=== PATIENT | male | born 1945 | race Caucasian/White ===

== ENCOUNTER 2020-03-28 17:55 | Outpatient (REF) | payer MEDICARE, BC, SELFPAY ==
[2020-03-28 21:41] LABS: ALT 31 U/L (16-63); AST 28 U/L (15-37); Albumin 3.8 g/dL (3.4-5.0); Alkaline Phosphatase 51 U/L (46-116); Anion Gap 9.1 mmol/L (3-11); BUN 30 mg/dL (7-18); Bilirubin, Total 0.4 mg/dL (0.2-1.0); CO2 23.9 mmol/L (21.0-32.0); Calcium 9.1 mg/dL (8.5-10.1); Calculated LDL 49 mg/dL (<100); Chloride 102 mmol/L (98-107); Cholesterol 120 mg/dL (<200); Estimated GFR 42.58 (mL/min/1.73m2); Glucose 182 mg/dL (74-106); HDL Cholesterol 42 mg/dL (40-60); Potassium 5.2 mmol/L (3.5-5.1); Sodium 135 mmol/L (136-145); Total Protein 6.9 g/dL (6.4-8.2); Triglyceride 146 mg/dL (<150)
[2020-03-29 15:55] LABS: Hemoglobin A1C 6.5 % (3.8-5.6)
== END 2020-03-28 18:15 ==
LOC: NCHCN 17:55
PROVIDERS: Visit Provider Family Medicine
DX: E11.65 Type 2 diabetes mellitus with hyperglycemia (principal); E78.5 Hyperlipidemia, unspecified; I10 Essential (primary) hypertension
CPT/HCPCS: 80053; 80061; 83036

== ENCOUNTER 2021-04-03 14:35 | Outpatient (REF) | payer MEDICARE, BC, SELFPAY ==
[2021-04-03 13:43] LABS: HCT 39.6 % (40.0-50.0); HGB 13.1 g/dL (13.5-17.5); MCH 31.4 pg (27.0-33.0); MCHC 33.1 % (32.0-36.0); MPV 11.8 fL (8.0-11.0); Platelet Count 250 10^3/uL (130-400); RBC 4.17 10^6/uL (4.36-5.78); RDW 13.5 % (11.8-14.1); RDW-SD 46.9 fL; WBC 8.26 10^3/uL (4.4-10.8)
[2021-04-03 14:08] LABS: ALT 30 U/L (16-63); AST 26 U/L (15-37); Albumin 3.6 g/dL (3.4-5.0); Alkaline Phosphatase 56 U/L (46-116); Anion Gap 12.1 mmol/L (3-11); BUN 31 mg/dL (7-18); Bilirubin, Total 0.4 mg/dL (0.2-1.0); CO2 23.9 mmol/L (21.0-32.0); CREATININE 1.9 mg/dL (0.70-1.30); Calcium 9.4 mg/dL (8.5-10.1); Calculated LDL 45 mg/dL (<100); Chloride 105 mmol/L (98-107); Cholesterol 119 mg/dL (<200); Estimated GFR 34.83 (mL/min/1.73m2); Glucose 135 mg/dL (74-106); HDL Cholesterol 42 mg/dL (40-60); Potassium 5.7 mmol/L (3.5-5.1); Sodium 141 mmol/L (136-145); Total Protein 6.9 g/dL (6.4-8.2); Triglyceride 164 mg/dL (<150)
== END 2021-04-03 14:36 | disposition home or self-care (01) ==
LOC: NCHCN 14:35
PROVIDERS: Visit Provider Family Medicine
DX: E78.5 Hyperlipidemia, unspecified (principal); I10 Essential (primary) hypertension; E11.65 Type 2 diabetes mellitus with hyperglycemia
CPT/HCPCS: 80053; 80061; 85027

== ENCOUNTER 2021-05-07 16:13 | Outpatient (REF) | payer MEDICARE, BC, SELFPAY ==
[2021-05-07 14:20] LABS: Anion Gap 12.3 mmol/L (3-11); BUN 38 mg/dL (7-18); CO2 22.7 mmol/L (21.0-32.0); CREATININE 1.9 mg/dL (0.70-1.30); Calcium 9.3 mg/dL (8.5-10.1); Chloride 107 mmol/L (98-107); Estimated GFR 34.83 (mL/min/1.73m2); Glucose 134 mg/dL (74-106); Potassium 5.7 mmol/L (3.5-5.1); Sodium 142 mmol/L (136-145); Uric Acid 3.7 mg/dL (3.5-7.2)
== END 2021-05-07 16:14 | disposition home or self-care (01) ==
LOC: NCHCN 16:13
PROVIDERS: Visit Provider Family Medicine
DX: E11.65 Type 2 diabetes mellitus with hyperglycemia (principal); N19 Unspecified kidney failure; I10 Essential (primary) hypertension; M10.9 Gout, unspecified
CPT/HCPCS: 80048; 84550

== ENCOUNTER 2021-06-28 16:37 | Outpatient (REF) | payer MEDICARE, BC, SELFPAY ==
[2021-06-28 21:52] LABS: Anion Gap 8.3 mmol/L (3-11); BUN 28 mg/dL (7-18); CO2 26.7 mmol/L (21.0-32.0); CREATININE 1.6 mg/dL (0.70-1.30); Calcium 9.2 mg/dL (8.5-10.1); Chloride 107 mmol/L (98-107); Estimated GFR 42.46 (mL/min/1.73m2); Glucose 113 mg/dL (74-106); Potassium 4.7 mmol/L (3.5-5.1); Sodium 142 mmol/L (136-145); Uric Acid 6.1 mg/dL (3.5-7.2)
== END 2021-06-28 16:38 | disposition home or self-care (01) ==
LOC: NCHCN 16:37
PROVIDERS: Visit Provider Family Medicine
DX: E11.65 Type 2 diabetes mellitus with hyperglycemia (principal); I10 Essential (primary) hypertension; N19 Unspecified kidney failure
CPT/HCPCS: 80048; 84550

== ENCOUNTER 2022-03-28 17:50 | Outpatient (REF) | payer MEDICARE, BC, SELFPAY ==
[2022-03-28 20:52] LABS: Anion Gap 13.2 mmol/L (3-11); BUN 25 mg/dL (7-18); CO2 23.8 mmol/L (21.0-32.0); CREATININE 1.7 mg/dL (0.70-1.30); Calcium 9.3 mg/dL (8.5-10.1); Chloride 107 mmol/L (98-107); Estimated GFR 39.49 (mL/min/1.73m2); Glucose 147 mg/dL (74-106); Potassium 4.9 mmol/L (3.5-5.1); Sodium 144 mmol/L (136-145)
== END 2022-03-28 17:51 | disposition home or self-care (01) ==
LOC: NCHCN 17:50
PROVIDERS: PCP Family Medicine; Visit Provider Family Medicine
DX: I10 Essential (primary) hypertension (principal)
CPT/HCPCS: 80048

== ENCOUNTER 2022-06-20 18:46 | Outpatient (REF) | payer MEDICARE, BC, SELFPAY | END 2022-06-20 18:47 | disposition home or self-care (01) | LOC: NCHCN 18:46 | PROVIDERS: PCP Family Medicine; Visit Provider Family Medicine | DX: L03.90 Cellulitis, unspecified (principal) | CPT/HCPCS: 87077; 87070; 87186; 87205 ==

== ENCOUNTER 2022-07-21 11:02 | Emergency (ER) | payer MEDICARE, BC, SELFPAY ==
[2022-07-21 11:27] VITALS: BP 122/94; PULSE 68; RESP 18; TEMP 36.7; O2SAT 99
--- NOTE | 2022-07-21 13:00 | DI.RAD_ITS ---
Exam(s) XR HEEL RT OS CALCIS EXAM: XR HEEL RT OS CALCIS CLINICAL HISTORY: trauma, posterior heel pain. TECHNIQUE: 2D digital imaging was performed. Two views. COMPARISON: No exams were available for comparison FINDINGS: BONES: No acute fracture is present. No bony destructive lesion is seen.Tiny plantar spur. JOINTS: No dislocation present. SOFT TISSUE: Arterial calcifications. Soft tissue thickening posterior to calcaneus. Chronic appear ing focal calcification adjacent to the tuberosity. IMPRESSION: Posterior soft tissue swelling. No acute fracture. DATA REPOSITORY: RADIATION DOSE DELIVERED:
--- NOTE | 2022-07-21 13:13 | ED.GENADUL_ITS ---
Discharge Plan Disposition Patient Disposition: HOME Condition: Good Discharge Details Clinical Impression: Contusion of heel, Finger laceration Primary Care Provider: Ernesto Weiss ED Provider: Cynthia Story Home Meds and New Rx's Prescriptions: Continued aspirin [Claus Low Dose Aspirin] 81 MG tablet,delayed release (DR/EC) 81 mg PO DAILY famotidine 20 MG tablet 20 mg PO DAILY PRN Label Comments: 04/21/14 pt has not taken for months Does not take daily. CG Rx Instructions: if needed for heartburn ascorbic acid (vitamin C) 500 MG tablet 500 mg PO DAILY carhomcalxo-qfsdsulqi-exz C-Mn 1 EACH tablet 1 ea PO DAILY cholecalciferol (vitamin D3) 1,000 UNIT tablet 2,000 unit PO DAILY cetirizine [Zyrtec] 10 MG capsule 10 mg PO DAILY Rx Instructions: for allergies, marquita summer bnspo-cdnha-1-xlg-fqp-kpxgai [krill oil] 1 EACH capsule 1 ea PO DAILY triamcinolone acetonide 15 GM ointment 1 applic Topical DAILY Qty: 80 Rx Instructions: to left palm lesion acebutolol 400 MG capsule 400 mg PO DAILY Qty: 90 Rx Instructions: to control BP under 140/80 albuterol sulfate [ProAir HFA] 8.5 GM HFA aerosol inhaler 2 puff Inhalation Q4H PRN Qty: 1 metformin 850 MG tablet 850 mg PO as directed Qty: 270 Rx Instructions: one in the morning and two in the evening, for blood sugar control, E11.65 (DME) blood sugar diagnostic [OneTouch Ultra Test] 1 EACH strip 1 ea Miscellaneous DAILY Qty: 50 3RF Rx Instructions: to test blood sugars 2x/week to keep AIC at or below 7.0 Dx: E11.9 irbesartan [Avapro] 300 MG tablet 300 mg PO DAILY Qty: 90 3RF Rx Instructions: for BP control under 140/85 fluticasone propion-salmeterol [Advair Diskus] 1 EACH blister with device 1 ea Inhalation BID Qty: 1 11RF Rx Instructions: maintenance for asthma allopurinol 300 MG tablet 300 mg PO DAILY Qty: 90 1RF Rx Instructions: for tophacous gout simvastatin 40 MG tablet 40 mg PO HS Qty: 90 3RF spironolacton-hydrochlorothiaz [Aldactazide] 1 EACH tablet 1 tab-cap PO DAILY Qty: 90 3RF Rx Instructions: to control BP <140/80 uezceiav-tfi-AZ-lycopen-lutein [Centrum Silver Men] 1 EACH tablet 1 ea PO DAILY cbd oil 15 mg DAILY canagliflozin [Invokana] 100 MG tablet 100 mg PO DAILY 30 Days Qty: 30 6RF indomethacin 25 MG capsule 25 mg PO QID Qty: 20 3RF Rx Instructions: WHEN NEEDED FOR ACUTE GOUT Discharge Instructions Instructions: Foot Contusion (ED) Additional Instructions: Please return immediately to the emergency department if you develop any new or worsening symptoms, if your condition does not improve as expected, or if you become otherwise concerned. It is extremely important that you call soon as possible to make an appointment to be seen in follow-up for this visit by your primary care doctor. Referrals: Ernesto Weiss MD [Primary Care Provider] - Discharge Data Discharge Date/Time-TO BE ENTERED AT DEPARTURE: 07/21/22 14:59 Medical Decision Making Concern for calcaneus contusion versus less likely fracture, other, also healing wound of the left index finger. Exam/history at this time is not consistent with cellulitis/osteomyelitis of the foot for finger, fracture of other foot bones, ankle fracture, finger fracture, finger tendon injury, DVT, neuro vascular pathology of the foot. Plan for x-rays of the calcaneus; tetanus booster, bacitracin, gauze dressing, finger splint to promote healing, laceration repair not indicated at this time. X-rays negative. Patient states that he is able to walk easily without assistance, declines crutches. Okay for discharge to home. I had a discussion with Patient regarding return to emergency department precautions, home care, and importance of outpatient follow-up. Pt verbalizes understanding of the plan and is amenable. Patient discharged to home with clear plan for outpatient follow-up. All questions were answered. Disposition decision was made weighing the risks and benefits of hospitalization versus outpatient treatment, the risk for further decompensation, and the patient's wishes. Medical Records Medical records reviewed: Yes I reviewed the patient's medical records. Imaging Data Radiologic Study: Attestation: I personally reviewed and interpreted this imaging study as follows: Radiologist's impression: EXAM:? XR HEEL RT OS CALCIS CLINICAL HISTORY: ? trauma, posterior heel pain.? TECHNIQUE:? 2D digital imaging was performed.? Two views. COMPARISON:? No exams were available for comparison FINDINGS: BONES: No acute fracture is present. No bony destructive lesion is seen.Tiny plantar spur. JOINTS: No dislocation present. SOFT TISSUE: Arterial calcifications.? Soft tissue thickening posterior to calcaneus.? Chronic appearing focal calcification adjacent to the tuberosity. IMPRESSION: Posterior soft tissue swelling.? No acute fracture. HPI General Mode of arrival: ambulatory . Date/Time Provider Initiated Documentation: 07/21/22 12:32 . Limitations to Documentation: no limitations . Information obtained by: patient, RN notes reviewed and old records reviewed . HPI Narrative: Rafy Alvarez is a 76-year-old man with history of zdw-oalived-coauyccva diabetes, hyperlipidemia, hypertension, gout, diabetic neuropathy, status post arterial procedure of right lower extremity 06/23 presenting to emergency department with right-sided heel pain. Patient reports that on 07/16 he bumped the back of his right heel against a chair. Patient reports that the back of his heel has been painful since that time, worse with walking. Patient reports that he thought it was just a bruise however pain has not been improving much. Patient reports that he has been walking without assistance without issue since time of injury. Patient also reports that last night at 9 PM he cut his left second digit with a knife. Patient reports that there was initially significant bleeding from the cut, however he wrapped it with pressure and there has been no bleeding today. Patient denies any pain other than to right heel. Denies fever, cough, shortness of breath, numbness, weakness, vomiting, rash. On review of systems he does note that he had some diarrhea a few days ago that is now resolved. Patient reports that he sees his vascular surgeon at [facility] in 1 week and has had no issue with the surgical wounds from his procedure 06/23. Reports last tetanus shot 2006. Related Data Home Medications Medication Instructions Recorded Confirmed ascorbic acid (vitamin C) 500 mg 500 mg PO DAILY 02/18/13 04/21/14 tablet aspirin 81 mg tablet,delayed 81 mg PO DAILY 02/18/13 04/21/14 release (Claus Low Dose Aspirin) cetirizine 10 mg capsule (Zyrtec) 10 mg PO DAILY 02/18/13 04/21/14 cholecalciferol (vitamin D3) 25 2,000 unit PO DAILY 02/18/13 04/21/14 mcg (1,000 unit) tablet famotidine 20 mg tablet 20 mg PO DAILY PRN 02/18/13 04/21/14 weiyeprtuot-aafbnlnej-lny C-Mn 750 1 ea PO DAILY 02/18/13 04/21/14 mg-600 mg-55 mg-5 mg tablet krill 1 ea PO DAILY 02/18/13 04/21/14 jlf-xd-6-adc-vkq-nsoyscbhpvspx 300 mg-90 mg-24 mg-50 mg capsule (krill oil) acebutolol 400 mg capsule 400 mg PO DAILY #90 tab-caps 04/06/17 triamcinolone acetonide 0.5 % 1 applic topical DAILY #80 grams 04/06/17 topical ointment albuterol sulfate 90 mcg/actuation 2 puff inhalation Q4H PRN ##1 05/25/17 aerosol inhaler (ProAir HFA) metformin 850 mg tablet 850 mg PO as directed #270 tabs 07/10/17 blood sugar diagnostic (OneTouch #50 strips 09/14/17 Ultra Test strips) fluticasone 250 mcg-salmeterol 50 1 ea inhalation BID ##1 09/14/17 mcg/dose blistr powdr for inhalation (Advair Diskus) irbesartan 300 mg tablet (Avapro) 300 mg PO DAILY #90 tab-caps 09/14/17 allopurinol 300 mg tablet 300 mg PO DAILY #90 tab-caps 10/09/17 simvastatin 40 mg tablet 40 mg PO HS #90 tabs 11/24/17 spironolactone 25 1 tab-cap PO DAILY #90 tab-caps 12/28/17 mg-hydrochlorothiazide 25 mg tablet (Aldactazide) Cbd Oil 15 mg DAILY 01/15/18 canagliflozin 100 mg tablet 100 mg PO DAILY 30 days #30 01/15/18 (Invokana) tab-caps fjylcxpe-tfx-luvjw acid 300 1 ea PO DAILY 01/15/18 mcg-lycopene 600 mcg-lutein 300 mcg tablet (Centrum Silver Men) indomethacin 25 mg capsule 25 mg PO QID #20 tab-caps 01/28/18 Previous Rx's Medication Instructions Recorded blood sugar diagnostic (OneTouch #50 strips 09/14/17 Ultra Test strips) fluticasone 250 mcg-salmeterol 50 1 ea inhalation BID ##1 09/14/17 mcg/dose blistr powdr for inhalation (Advair Diskus) irbesartan 300 mg tablet (Avapro) 300 mg PO DAILY #90 tab-caps 09/14/17 allopurinol 300 mg tablet 300 mg PO DAILY #90 tab-caps 10/09/17 simvastatin 40 mg tablet 40 mg PO HS #90 tabs 11/24/17 spironolactone 25 1 tab-cap PO DAILY #90 tab-caps 12/28/17 mg-hydrochlorothiazide 25 mg tablet (Aldactazide) canagliflozin 100 mg tablet 100 mg PO DAILY 30 days #30 01/15/18 (Invokana) tab-caps indomethacin 25 mg capsule 25 mg PO QID #20 tab-caps 01/28/18 Allergies Allergy/AdvReac Type Severity Reaction Status Date / Time atenolol Allergy Severe CRITICAL. Unverified 09/14/17 15:06 SAM Inhibitors AdvReac Severe COUGH Unverified 09/14/17 15:06 General Stated Complaint: Orthopedic KARIS: 4 Review of Systems Narrative: Constitutional: denies fevers Eyes: denies eye pain ENT: denies ear pain, dental pain, sore throat Cardiovascular: denies chest pain Respiratory: denies SOB, cough GI: denies abdominal pain, vomiting, diarrhea : denies flank pain MSK: denies back pain, neck pain, arthralgias, myalgias, reports heel pain Skin: denies rash Neuro: denies headaches, numbness, weakness PFSH All Active Problems Contusion of heel (Acute) Finger laceration (Acute) Surgical History Prostatectomy (~11/2002) Laporoscopic, [place], [place] Rotator Cuff Repair (~1997) Tara Awan Family History Mother , CVA at age 63. Diabetes Father , colon ca at age 63. No problems noted. Social History Smoking/Tobacco Use Status: Former Tobacco Use Smoking risk assessment performed?: Yes Alcohol Intake: current Alcohol Intake frequency: holidays/special occasions o nly Drug use: Never Substance use type: marijuana Do you feel safe in your relationship?: Yes Exam Narrative Exam Narrative: Constitutional: well and qkm-mcwkh-dvcykgnyb, pleasant, conversing normally HENT: head atraumatic/normocephalic/normal inspection, mucous membranes moist Eyes: conjunctiva normal, sclera normal, pupils 3mm b/l Neck: no stridor, normal ROM, trachea midline Resp: normal work of breathing, speaking in full sentences Cardio: normal rate, normal rhythm Skin: warm, dry, normal color, no rash Neuro: alert, not altered, grossly non-focal, normal tone Ext: right posterior heel tender to palpation, mild edema of the posterior heel, no crepitus, no deformity, no erythema or overlying skin changes, no plantar tenderness to palpation of the heel, no other tenderness of the foot or ankle, full range of motion right ankle and right toes, no posterior calf tenderness to palpation, no lower leg edema, DP pulses intact and symmetric. Left index finger with a 1 cm superficial laceration over the palmar surface of the first phalanx, non-gaping, no bleeding, no tenderness to palpation of the PIP or DIP, full painless range of motion of the PIP and DIP, FDS and FDP function intact, brisk cap refill, no edema of the digit. Psych: normal mood, normal affect, normal behavior Course Vital Signs Vital signs: Vital Signs Temperature 36.7 C 07/21/22 11:27 Pulse 68 07/21/22 11:27 Respiratory Rate 18 07/21/22 11:27 Blood Pressure 122/94 H 07/21/22 11:27 Pulse Oximetry 99 07/21/22 11:27 Temperature 36.7 C 07/21/22 11:27 Temperature Source Skin 07/21/22 11:27 Pulse 68 07/21/22 11:27 Respiratory Rate 18 07/21/22 11:27 Respiratory Effort 07/21/22 11:34 Blood Pressure 122/94 H 07/21/22 11:27 Blood Pressure Position Sitting 07/21/22 11:27 Pulse Oximetry 99 07/21/22 11:27 Oxygen Delivery Method Room Air 07/21/22 11:27 Oxygen Flow Rate 0 07/21/22 11:27 Pain Level 6 07/21/22 11:27 Comment 07/21/22 11:27
[2022-07-21] MEDS: Bacitracin 1 PACKET TP (14:09)
== END 2022-07-21 14:59 | disposition home or self-care (01) ==
PROVIDERS: Emergency Provider Student in an Organized Health Care Education/Training Program; PCP Family Medicine
DX: S61.211A Laceration without foreign body of left index finger without damage to nail, initial encounter (principal); S90.32XA Contusion of left foot, initial encounter; W22.8XXA Striking against or struck by other objects, initial encounter; W26.0XXA Contact with knife, initial encounter; Z87.891 Personal history of nicotine dependence; Z23 Encounter for immunization; I10 Essential (primary) hypertension; E11.40 Type 2 diabetes mellitus with diabetic neuropathy, unspecified; Z79.84 Long term (current) use of oral hypoglycemic drugs
CPT/HCPCS: 90471; 99283; 73650; 99282

== ENCOUNTER 2022-09-22 15:10 | Outpatient (REF) | payer MEDICARE, BC, SELFPAY ==
[2022-09-22 21:38] LABS: HCT 30.2 % (40.0-50.0); HGB 8.7 g/dL (13.5-17.5); MCHC 28.8 % (32.0-36.0); MCV 77 fL (80-95); MPV 11.1 fL (8.0-11.0); Platelet Count 417 10^3/uL (130-400); RBC 3.95 10^6/uL (4.36-5.78); RDW 16.1 % (11.8-14.1); RDW-SD 44.9 fL; WBC 9.51 10^3/uL (4.4-10.8)
[2022-09-22 22:27] LABS: Anion Gap 12.2 mmol/L (3-11); BUN 32 mg/dL (7-18); CO2 22.8 mmol/L (21.0-32.0); CREATININE 1.5 mg/dL (0.70-1.30); Calcium 9.2 mg/dL (8.5-10.1); Chloride 105 mmol/L (98-107); Estimated GFR 47.95 (mL/min/1.73m2); Glucose 106 mg/dL (74-106); Potassium 4.5 mmol/L (3.5-5.1); Sodium 140 mmol/L (136-145)
== END 2022-09-22 15:11 | disposition home or self-care (01) ==
LOC: NCHCN 15:10
PROVIDERS: PCP Family Medicine; Visit Provider Family Medicine
DX: I10 Essential (primary) hypertension (principal); E11.65 Type 2 diabetes mellitus with hyperglycemia
CPT/HCPCS: 80048; 85027

== ENCOUNTER 2022-10-03 14:59 | Outpatient (REF) | payer MEDICARE, BC, SELFPAY ==
[2022-10-03 21:27] LABS: HCT 30.4 % (40.0-50.0); HGB 8.9 g/dL (13.5-17.5); MCHC 29.3 % (32.0-36.0); MCV 75 fL (80-95); MPV 11.1 fL (8.0-11.0); Platelet Count 395 10^3/uL (130-400); RBC 4.05 10^6/uL (4.36-5.78); RDW-SD 43.8 fL; WBC 6.58 10^3/uL (4.4-10.8)
[2022-10-03 21:39] LABS: Iron 22 ug/dL (65-175); Total Iron Binding Capacity 433 ug/dL (250-450); Transferrin Sat 5 % (20-55)
[2022-10-03 21:52] LABS: Ferritin 15 ng/mL (26-388)
== END 2022-10-03 15:00 | disposition home or self-care (01) ==
LOC: NCHCN 14:59
PROVIDERS: PCP Family Medicine; Visit Provider Family Medicine
DX: D64.9 Anemia, unspecified (principal)
CPT/HCPCS: 85027; 82728; 83540; 83550

== ENCOUNTER 2022-11-11 15:10 | Outpatient (REF) | payer MEDICARE, BC, SELFPAY ==
[2022-11-11 15:00] LABS: HCT 41.6 % (40.0-50.0); HGB 12.9 g/dL (13.5-17.5)
[2022-11-11 15:34] LABS: Ferritin 43 ng/mL (26-388)
== END 2022-11-11 15:11 | disposition home or self-care (01) ==
LOC: NCHCN 15:10
PROVIDERS: PCP Family Medicine; Visit Provider Family Medicine
DX: D64.9 Anemia, unspecified (principal); E11.65 Type 2 diabetes mellitus with hyperglycemia
CPT/HCPCS: 82728; 85014; 85018

== ENCOUNTER 2023-02-04 09:42 | Outpatient (REF) | payer MEDICARE, BC, SELFPAY ==
--- NOTE | 2023-02-04 09:30 | SKI_PTH ---
PATIENT: Rafy Alvarez LOC: NCN #:[id number] AGE/SX: 77/M ROOM: RE02/04/[address]: Ernesto Weiss : 1945 BED: DIS: 02/04/2023 SPEC #: [id number] RECD: 02/04/23 17:37 STATUS: VAHE REQ #: [id number] FRANK: 02/04/23 09:[address]: Ernesto Weiss DEPT: Surgical Specimen RECD BY: Belkis Valencia Tissues: 1 - SKIN BIOPSY(SHAVE/PUNCH) Procedures: SKIN LEVEL 4 Comments: [id number]
== END 2023-02-04 09:43 | disposition home or self-care (01) ==
LOC: NCHCN 09:42
PROVIDERS: PCP Family Medicine; Visit Provider Family Medicine
DX: L43.8 Other lichen planus (principal)
CPT/HCPCS: 88305

== ENCOUNTER 2023-03-23 21:14 | Outpatient (REF) | payer MEDICARE, BC, SELFPAY ==
[2023-03-23 21:27] LABS: Abs Immature Grans 0.02 10^3/uL (0.0-0.06); Absolute Basophil Count 0.07 10^3/uL (0.0-0.2); Absolute Eosinophil Count 0.23 10^3/uL (0.0-0.7); Absolute Monocyte Count 0.63 10^3/uL (0.1-0.8); Absolute Neutrophil Count 4.21 10^3/uL (1.2-6.7); Eosinophils % 3.2; HCT 33.7 % (40.0-50.0); HGB 11.2 g/dL (13.5-17.5); Immature Grans % 0.3; Lymphocytes % 28.9; MCH 30.8 pg (27.0-33.0); MCHC 33.2 % (32.0-36.0); MCV 93 fL (80-95); MPV 11.3 fL (8.0-11.0); Monocytes % 8.7; Neutrophils % 57.9; Platelet Count 300 10^3/uL (130-400); RBC 3.64 10^6/uL (4.36-5.78); RDW 13.2 % (11.8-14.1); RDW-SD 45.2 fL; WBC 7.26 10^3/uL (4.4-10.8)
[2023-03-23 22:01] LABS: ALT 33 U/L (16-63); AST 43 U/L (15-37); Albumin 3.9 g/dL (3.4-5.0); Alkaline Phosphatase 46 U/L (46-116); Anion Gap 11.7 mmol/L (3-11); BUN 34 mg/dL (7-18); Bilirubin, Total 0.6 mg/dL (0.2-1.0); CO2 23.3 mmol/L (21.0-32.0); CREATININE 1.4 mg/dL (0.70-1.30); Calcium 9.1 mg/dL (8.5-10.1); Chloride 101 mmol/L (98-107); Estimated GFR 52.09 (mL/min/1.73m2); Ferritin 22 ng/mL (26-388); Glucose 148 mg/dL (74-106); Potassium 4.2 mmol/L (3.5-5.1); Sodium 136 mmol/L (136-145); Total Protein 7.2 g/dL (6.4-8.2)
== END 2023-03-23 21:15 | disposition home or self-care (01) ==
LOC: NCHCN 21:14
PROVIDERS: PCP Family Medicine; Visit Provider Family Medicine
DX: E11.65 Type 2 diabetes mellitus with hyperglycemia (principal); D64.9 Anemia, unspecified; I10 Essential (primary) hypertension; N19 Unspecified kidney failure
CPT/HCPCS: 80053; 82728; 85025

== ENCOUNTER 2023-09-21 18:02 | Outpatient (REF) | payer MEDICARE, BC, SELFPAY ==
[2023-09-21 21:49] LABS: Anion Gap 8.9 mmol/L (3-11); BUN 28 mg/dL (7-18); CO2 26.1 mmol/L (21.0-32.0); CREATININE 1.2 mg/dL (0.70-1.30); Calcium 9.7 mg/dL (8.5-10.1); Chloride 102 mmol/L (98-107); Estimated GFR 62.29 (mL/min/1.73m2); Glucose 120 mg/dL (74-106); Potassium 4.4 mmol/L (3.5-5.1); Sodium 137 mmol/L (136-145)
== END 2023-09-21 18:03 | disposition home or self-care (01) ==
LOC: NCHCN 18:02
PROVIDERS: PCP Family Medicine; Visit Provider Family Medicine
DX: N19 Unspecified kidney failure (principal); E11.9 Type 2 diabetes mellitus without complications; I10 Essential (primary) hypertension
CPT/HCPCS: 80048

== ENCOUNTER 2024-09-26 16:37 | Outpatient (REF) | payer MEDICARE, BC, SELFPAY ==
[2024-09-26 21:09] LABS: Abs Immature Grans 0.03 10^3/uL (0.0-0.06); Absolute Basophil Count 0.07 10^3/uL (0.0-0.2); Absolute Eosinophil Count 0.16 10^3/uL (0.0-0.7); Absolute Lymphocyte Count 2.07 10^3/uL (1.2-3.4); Absolute Monocyte Count 0.85 10^3/uL (0.1-0.8); Absolute Neutrophil Count 5.92 10^3/uL (1.2-6.7); Basophils % 0.8 %; Eosinophils % 1.8 %; HCT 36.9 % (40.0-50.0); HGB 12.3 g/dL (13.5-17.5); Immature Grans % 0.3 %; Lymphocytes % 22.7 %; MCHC 33.3 % (32.0-36.0); MCV 96 fL (80-95); MPV 11.2 fL (8.0-11.0); Monocytes % 9.3 %; Neutrophils % 65.1 %; Platelet Count 305 10^3/uL (130-400); RBC 3.84 10^6/uL (4.36-5.78); RDW 12.5 % (11.8-14.1); RDW-SD 43.4 fL
[2024-09-26 21:22] LABS: COMMENT (LAB VIEW ONLY) 104.41 mg/dL; Microalb ug/mg Crea 74.8 ug/mg Cr
[2024-09-26 21:38] LABS: ALT 31 U/L (16-63); AST 27 U/L (15-37); Albumin 3.7 g/dL (3.4-5.0); Alkaline Phosphatase 50 U/L (46-116); BUN 34 mg/dL (7-18); Bilirubin, Total 0.48 mg/dL (0.2-1.0); CREATININE 1.5 mg/dL (0.70-1.30); Calcium 9.2 mg/dL (8.5-10.1); Chloride 101 mmol/L (98-107); Estimated GFR 47.36 (mL/min/1.73m2); Ferritin 30 ng/mL (26-388); Glucose 178 mg/dL (74-106); LDL CHOLESTEROL 44 mg/dL (<100); Potassium 4.2 mmol/L (3.5-5.1); Sodium 138 mmol/L (136-145); Total Protein 6.9 g/dL (6.4-8.2)
== END 2024-09-26 16:38 | disposition home or self-care (01) ==
LOC: NCHCN 16:37
PROVIDERS: PCP Family Medicine; Visit Provider Family Medicine
DX: I10 Essential (primary) hypertension (principal)
CPT/HCPCS: 80053; 83721; 82043; 82570; 82728; 84550; 85025

== ENCOUNTER 2025-03-30 12:14 | Outpatient (REF) | payer MEDICARE, BC, SELFPAY ==
[2025-03-30 15:30] LABS: HCT 34.8 % (40.0-50.0); HGB 11.4 g/dL (13.5-17.5); MCH 29.5 pg (27.0-33.0); MCHC 32.8 % (32.0-36.0); MCV 90 fL (80-95); MPV 11.4 fL (8.0-11.0); Platelet Count 321 10^3/uL (130-400); RBC 3.86 10^6/uL (4.36-5.78); RDW 13.2 % (11.8-14.1); RDW-SD 43.8 fL; WBC 6.91 10^3/uL (4.4-10.8)
[2025-03-30 16:05] LABS: Anion Gap 10.9 mmol/L (3-11); BUN 31 mg/dL (7-18); CO2 25.1 mmol/L (21.0-32.0); CREATININE 1.3 mg/dL (0.70-1.30); Calcium 9.4 mg/dL (8.5-10.1); Chloride 104 mmol/L (98-107); Estimated GFR 56.23 (mL/min/1.73m2); Ferritin 18 ng/mL (26-388); Glucose 169 mg/dL (74-106); Potassium 4.6 mmol/L (3.5-5.1); Sodium 140 mmol/L (136-145)
== END 2025-03-30 12:15 | disposition home or self-care (01) ==
LOC: NCHCN 12:14
PROVIDERS: PCP Family Medicine; Visit Provider Family Medicine
DX: D50.9 Iron deficiency anemia, unspecified (principal); N18.31 Chronic kidney disease, stage 3a
CPT/HCPCS: 80048; 85027; 82728

== ENCOUNTER 2025-05-11 01:22 | Outpatient (CLI) | payer MEDICARE, BC, SELFPAY ==
--- NOTE | 2025-05-11 12:30 | DI.RAD_ITS ---
Exam(s) XR FOOT LT COMPLETE EXAM: XR FOOT LT COMPLETE CLINICAL HISTORY: Bunions, BUNION OF LT FOOT. M21.612. TECHNIQUE: 2D digital imaging was performed. Three views. COMPARISON: CR XR FOOT RT COMPLETE from 05/11/2025 FINDINGS: BONES: No acute fracture is present. There are small erosions at the medial base of the proximal phalanx of the great toe as well as 1st metatarsal head. JOINTS: No dislocation present. There are mild degenerative changes of the 1st MTP joint. There is severe there is severe narrowing of the interphalangeal joint of the great toe is in stne-gx-vgqk appearance and prominent periarticular spurring. The remaining MTP joints and interphalangeal joints are unremarkable. SOFT TISSUE: Soft tissue swelling medial to the 1st MTP joint. There is some calcifications which could indicate gout. There is also soft tissue prominence and calcification at the dorsal aspect of interphalangeal joint. 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 Adjacent soft tissue swelling and calcifications. Soft tissue swelling with calcification and adjacent erosions at the 1st MTP joint may indicate gout. DATA REPOSITORY: RADIATION DOSE DELIVERED:
--- NOTE | 2025-05-11 12:31 | DI.RAD_ITS ---
Exam(s) XR FOOT RT COMPLETE EXAM: XR FOOT RT COMPLETE CLINICAL HISTORY: Bunions, BUNION OF R FOOT. M21.611. TECHNIQUE: 2D digital imaging was performed. Three views. COMPARISON: CR XR FOOT LT COMPLETE from 05/11/2025 FINDINGS: BONES: No acute fracture is present. Enthesophyte at the Achilles insertion on the calcaneus. Small erosions at the medial base of the proximal phalanx of the great toe and medial 1st metatarsal head. JOINTS: No dislocation present. Severe degenerative changes of the interphalangeal joint of the great toe, with obliteration of the joint space, prominent spurring and subchondral cyst formation. The 1st MTP joint space is maintained. There is mild periarticular spurring. SOFT TISSUE: Mild soft tissue swelling medial to the 1st MTP joint with fate calcifications which could indicate gout. Mild vascular calcifications.. 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 Mild soft tissue swelling with calcifications and small erosions at the medial aspect of the 1st MTP joint which could indicate gout. DATA REPOSITORY: RADIATION DOSE DELIVERED:
== END 2025-05-11 01:42 ==
PROVIDERS: PCP Family Medicine; Visit Provider Podiatrist
DX: I73.89 Other specified peripheral vascular diseases (principal); E11.65 Type 2 diabetes mellitus with hyperglycemia; E11.42 Type 2 diabetes mellitus with diabetic polyneuropathy; M21.611 Bunion of right foot; M21.612 Bunion of left foot; L84 Corns and callosities; I87.2 Venous insufficiency (chronic) (peripheral); R26.89 Other abnormalities of gait and mobility; M10.9 Gout, unspecified; R09.89 Other specified symptoms and signs involving the circulatory and respiratory systems; R60.0 Localized edema; L65.9 Nonscarring hair loss, unspecified; R23.8 Other skin changes; L85.8 Other specified epidermal thickening
CPT/HCPCS: 99214; 11056; 73630

== ENCOUNTER → 2025-09-14 13:12 | Outpatient (BNVA) | payer MEDICARE, BC, SELFPAY | PROVIDERS: PCP Family Medicine; Referring Provider Family Medicine; Visit Provider Podiatrist | DX: L84 Corns and callosities (principal); E11.42 Type 2 diabetes mellitus with diabetic polyneuropathy; E11.65 Type 2 diabetes mellitus with hyperglycemia; M10.071 Idiopathic gout, right ankle and foot; M10.072 Idiopathic gout, left ankle and foot; M21.611 Bunion of right foot; M21.612 Bunion of left foot; I87.2 Venous insufficiency (chronic) (peripheral); R26.89 Other abnormalities of gait and mobility; I73.89 Other specified peripheral vascular diseases; R09.89 Other specified symptoms and signs involving the circulatory and respiratory systems; R60.0 Localized edema; I83.93 Asymptomatic varicose veins of bilateral lower extremities; L65.9 Nonscarring hair loss, unspecified; R23.8 Other skin changes; L85.8 Other specified epidermal thickening; R23.4 Changes in skin texture | CPT/HCPCS: 11056 ==